=== PATIENT | female | born 1945 | race Caucasian/White ===

== ENCOUNTER 2018-08-30 05:28 | Outpatient (CLI) | payer MEDICARE ==
[2018-08-30 13:20] LABS: Hemoglobin 14.4 g/dL (12.0-16.0); Mean Corpuscular Hemoglobin 30.4 pg (27.0-31.0); Mean Corpuscular Volume 94.9 fL (78.0-98.0); Mean Platelet Volume 7.9 fL (7.4-10.4); Platelet Count 273 thou/uL (130-400); RBC Distribution Width 11.9 % (11.5-14.5); Red Blood Cell (RBC) Count 4.75 mill/uL (4.20-5.40); White Blood Cell (WBC) Count 8.5 thou/uL (4.8-10.8)
[2018-08-30 13:26] LABS: PTT 29.8 SEC (22.9-36.1); Prothrombin Time 13.2 SEC (12.0-14.7)
[2018-08-30 13:51] LABS: Anion Gap 10 mmol/L (10-20); BUN (Urea Nitrogen) 16 mg/dL (9.8-20.1); Calc. Creatinine Clearance 0 mL/min (70-130); Calcium 9.5 mg/dL (7.8-10.44); Carbon Dioxide 29 mmol/L (23-31); Chloride 105 mmol/L (98-107); Estimated GFR-MDRD 62; Glucose 88 mg/dL (83-110); Potassium 4.2 mmol/L (3.5-5.1); Sodium 140 mmol/L (136-145)
== END 2018-08-30 05:29 | disposition home or self-care (01) ==
LOC: LABBT 05:28
PROVIDERS: ATTEND Surgery
DX: Z01.818 Encounter for other preprocedural examination (principal); M51.16 Intervertebral disc disorders with radiculopathy, lumbar region
CPT/HCPCS: 80048; 85027; 85610; 85730; 93005; 93010

== ENCOUNTER 2018-09-05 07:33 | Day surgery (SDC) | payer MEDICARE ==
[2018-08-30 11:44] VITALS: BMI 36.3
[2018-09-05] MEDS ORDERED: CEFAZOLIN 2 GM/50 ML BAG ONE (07:52)
[2018-09-05] MEDS ORDERED: HYDROmorphone 2 MG/ML VIAL SLOW IVP PRN (08:09)
[2018-09-05] MEDS ORDERED: Thrombin 5000 UNITS/5 ML VIAL ONE (08:09)
[2018-09-05] MEDS ORDERED: Promethazine HCl 25 MG/ML VIAL IM PRN ×2 (08:09→11:15)
[2018-09-05] MEDS ORDERED: Sodium Chloride 0.9% 10 ML ONE (08:09)
[2018-09-05] MEDS ORDERED: Promethazine HCl 25 MG/ML VIAL SLOW IVP PRN (08:09)
[2018-09-05] MEDS ORDERED: Bacitracin Zinc Ointment 30 gm TUBE ONE (08:09)
[2018-09-05] MEDS ORDERED: Meperidine HCl/PF 25 MG/ML VIAL SLOW IVP PRN (08:09)
[2018-09-05] MEDS ORDERED: Famotidine/PF 20 mg/2ml Vial ONE (08:20)
[2018-09-05] MEDS ORDERED: Ketorolac Tromethamine 30 MG/ML VIAL ONE ×2 (08:20→17:13)
[2018-09-05] MEDS ORDERED: Fentanyl 100 MCG/2 ML VIAL ONE ×3 (08:33→12:24)
[2018-09-05] MEDS ORDERED: Scopolamine 1.5 mg/72 hour Patch ONE (11:10)
[2018-09-05] MEDS ORDERED: Bisacodyl 10 MG SUPP PR PRN (11:15)
[2018-09-05] MEDS ORDERED: CEFAZOLIN/Water 2 GM/20 ML SYRINGE SLOW IVP SCH (11:15)
[2018-09-05] MEDS ORDERED: Acetaminophen 325 MG TAB PO PRN (11:15)
[2018-09-05] MEDS ORDERED: Milk Of Magnesia 30 ML UDCUP PO PRN (11:15)
[2018-09-05] MEDS ORDERED: Fleet Enema 133 ML BOT PR PRN (11:15)
[2018-09-05] MEDS ORDERED: Mag-Al 1200 mg/1200 mg/30 ML UDCUP PO PRN (11:15)
--- NOTE | 2018-09-05 12:16 | OP ---
DATE OF PROCEDURE: 09/05/2018 OUTSIDE SALES ACCOUNT EXECUTIVE: Yonas Chávez PA-C PREPROCEDURE DIAGNOSES: Left L5 and left S1 radiculopathy with left L4-L5 and left L5-S1 stenosis. POSTPROCEDURE DIAGNOSES: Left L5 and left S1 radiculopathy with left L4-L5 and left L5-S1 stenosis. PROCEDURES PERFORMED: 1. Left L4-L5 hemilaminotomy, foraminotomy, and diskectomy. 2. Left L5-S1 hemilaminotomy, foraminotomy and diskectomy. 3. Use of operative microscope for microdissection. DESCRIPTION OF PROCEDURE: After informed consent was obtained from the patient, the patient was brought to the OR. Proper patient pause and identification were carried out. She was then placed under excellent general endotracheal anesthesia and positioned prone on the OR table. All appropriate points were padded. We identified the L4-L5 and S1 dorsal spines. Linear tai were made over this region. This area was sterilely cleansed, prepared, and draped. Proper patient pause and identification were carried out. The wound was then opened with a combination of sharp, monopolar, and blunt dissection. Left L4-L5 and L5-S1 jareth-lamina were exposed. After localization, film was obtained. Left L4-L5 and left L5-S1 hemilaminotomies and foraminotomies were performed with use of the operative microscope for microdissection. Diskectomies in both the left L4-L5 and left L5-S1 segments were performed with excellent decompression of the nerve roots. Copious irrigation then occurred throughout as did maximizing hemostasis and closed the wound in anatomic layers. Job ID: [id number]
[2018-09-05] MEDS ORDERED: Morphine 4 MG/ML VIAL SLOW IVP PRN (15:40)
[2018-09-05] MEDS: Acetaminophen/Codeine 30-300mg Tablet PO PRN ×2 (17:01→22:15)
[2018-09-05] MEDS: tiZANidine HCl 4 MG TAB PO PRN ×2 (17:02→23:53)
[2018-09-05] MEDS ORDERED: ePHEDrine 50 MG/ML VIAL ONE (17:13)
[2018-09-05] MEDS ORDERED: Dexamethasone 20 MG/5 ML VIAL ONE (17:13)
[2018-09-05] MEDS ORDERED: Rocuronium Bromide 10 MG/ML (10ML VIAL) ONE (17:13)
[2018-09-05] MEDS: CEFAZOLIN 2 GM/50 ML-DEXTROSE 2 GM in Premix Bag 1 BAG IVPB SCH ×2 (17:13→23:53)
[2018-09-05] MEDS ORDERED: Glycopyrrolate 0.2 MG/ML 5 ML SYRINGE ONE (17:13)
[2018-09-05] MEDS ORDERED: PHENYLEPHRINE-NS 100 MCG/ML 10 ML SYRINGE ONE (17:13)
[2018-09-05] MEDS ORDERED: Ondansetron PF 4 MG/2 ML Vial ONE (17:13)
[2018-09-05] MEDS ORDERED: PROPOFOL 200 MG/20 ML VIAL ONE (17:13)
[2018-09-05] MEDS: Sodium Chloride 0.9% 1,000 ML IV SCH ×2 (17:13→21:34)
[2018-09-05] MEDS: traMADol HCl 50 MG TAB PO PRN (20:06)
[2018-09-06] MEDS: traMADol HCl 50 MG TAB PO PRN ×2 (02:29→08:53)
[2018-09-06 04:33] VITALS: BP 89/51; TEMP 97.9
[2018-09-06] MEDS ORDERED: Levothyroxine Sodium 100 MCG TAB PO SCH (06:00)
[2018-09-06] MEDS: Acetaminophen/Codeine 30-300mg Tablet PO PRN ×2 (07:03→10:43)
[2018-09-06] MEDS ORDERED: Simvastatin 20 MG TAB PO SCH (09:00)
--- NOTE | 2018-09-06 10:08 | PRG ---
DATE OF SERVICE: 09/06/2018 Ms. Schroeder is doing well with resolution of her left leg pain. She has good strength and is mobilizing. We went over both intra and postoperative issues and she will be dismissed. Job ID: [id number]
[2018-09-06] MEDS: tiZANidine HCl 4 MG TAB PO PRN (10:45)
== END 2018-09-06 11:30 | disposition home or self-care (01) ==
LOC: SDC 07:33 → SJJU 11:15 → SDC 09-06 11:30
PROVIDERS: ATTEND Surgery
PROC: 0SB20ZZ Excision of Lumbar Vertebral Disc, Open Approach (ICD-10-PCS; principal; 2018-09-05)
DX: M54.17 Radiculopathy, lumbosacral region (principal); M48.07 Spinal stenosis, lumbosacral region; Z88.5 Allergy status to narcotic agent; Z91.011 Allergy to milk products; Z79.899 Other long term (current) drug therapy
CPT/HCPCS: 76000; J0131; J1100; J1885; J2270; J2405; J2704; J3010; J3370; J3490; S0028

== ENCOUNTER 2020-08-31 07:09 | Outpatient (CLI) | payer MEDICARE ==
[2020-08-31 12:25] LABS: Hemoglobin 14.1 g/dL (12.0-16.0); Mean Corpuscular HGB CONC 32.6 G/DL (32.0-36.0); Mean Corpuscular Hemoglobin 29.6 PG (27.0-33.0); Mean Corpuscular Volume 90.8 fl (80.0-100.0); Mean Platelet Volume 9.3 fl (7.4-10.4); Platelet Count 342 10x3/uL (130-400); RBC Distribution Width 13.5 % (11.5-14.5); Red Blood Cell (RBC) Count 4.76 10x6/uL (3.90-5.20); White Blood Cell (WBC) Count 9.3 10x3/uL (4.5-11.0)
[2020-08-31 13:47] LABS: Anion Gap 12 mmol/L (10-20); BUN (Urea Nitrogen) 14 mg/dL (9.8-20.1); Calc. Creatinine Clearance 0 mL/min (70-130); Carbon Dioxide 30 mmol/L (23-31); Chloride 103 mmol/L (98-107); Glucose 69 mg/dL (83-110); Sodium 141 mmol/L (136-145)
[2020-09-01 05:16] LABS: SARS-CoV-2 PCR by NAA Not Detected (NotDetected)
--- NOTE | 2020-09-01 07:10 | EKG ---
Test Reason : Blood Pressure : / mmHG Vent. Rate : 056 BPM Atrial Rate : 056 BPM P-R Int : 168 ms QRS Dur : 098 ms QT Int : 430 ms P-R-T Axes : 059 010 050 degrees QTc Int : 414 ms Sinus bradycardia Otherwise normal ECG No previous ECGs available Confirmed by DR. Elham HOOKS ([id number]) on 09/01/2020 7:09:57 AM Referred By: JACQUELYN Confirmed By:DR. Elham HOOKS
== END 2020-08-31 07:10 | disposition home or self-care (01) ==
LOC: LABBT 07:09
PROVIDERS: ATTEND Urology
DX: Z01.818 Encounter for other preprocedural examination (principal); Z20.822 Contact with and (suspected) exposure to COVID-19; D41.4 Neoplasm of uncertain behavior of bladder
CPT/HCPCS: 80048; 85027; 93005; U0003; U0005; 87635; 93010

== ENCOUNTER 2020-09-03 10:21 | Day surgery (SDC) | payer MEDICARE ==
[2020-09-02 10:08] VITALS: BMI 31.7
[~2020-09-03 10:21] MED LIST: Dexamethasone 20 MG/5 ML VIAL ONE; Ketorolac Tromethamine 30 MG/ML VIAL ONE; Lidocaine 1% PF 5 ML VIAL ONE; Ondansetron PF 4 MG/2 ML Vial ONE; PHENYLEPHRINE-NS 100 MCG/ML 10 ML SYRINGE ONE; PROPOFOL 200 MG/20 ML VIAL ONE
[2020-09-03] MEDS ORDERED: Levofloxacin 500 mg/D5W 100 ml Premix Bag ONE (10:38)
[2020-09-03] MEDS ORDERED: Iothalamate Meglumine 60% 50 ML VIAL FS ONE (10:48)
[2020-09-03] MEDS ORDERED: Fentanyl 100 MCG/2 ML VIAL ONE (10:58)
[2020-09-03] MEDS ORDERED: mitoMYcin 40 MG in Sterile Water 20 ML I-VESIC SCH (11:00)
[2020-09-03] MEDS ORDERED: Oxybutynin 5 MG TAB ONE (12:07)
== END 2020-09-03 14:17 | disposition home or self-care (01) ==
LOC: SDC 10:21
PROVIDERS: ATTEND Urology
PROC: 0TBB8ZX Excision of Bladder, Via Natural or Artificial Opening Endoscopic, Diagnostic (ICD-10-PCS; principal; 2020-09-03)
DX: C67.9 Malignant neoplasm of bladder, unspecified (principal); E89.0 Postprocedural hypothyroidism; Z79.899 Other long term (current) drug therapy; Z88.5 Allergy status to narcotic agent; Z91.011 Allergy to milk products
CPT/HCPCS: 52234; 74420; 88305; J9280; J1100; J1885; J1956; J2405; J2704; J3010

== ENCOUNTER 2022-12-01 11:54 | Outpatient (CLI) | payer MEDICARE | END 2022-12-01 11:55 | disposition home or self-care (01) | LOC: SCSMRI 11:54 | PROVIDERS: ATTEND Orthopaedic Surgery | DX: S83.231A Complex tear of medial meniscus, current injury, right knee, initial encounter (principal); S83.281A Other tear of lateral meniscus, current injury, right knee, initial encounter; M25.461 Effusion, right knee; M71.21 Synovial cyst of popliteal space [Baker], right knee ==